=== PATIENT | female | born 1965 | race Caucasian/White ===

== ENCOUNTER 2017-07-04 08:05 | Emergency (ER) | payer OTHER ==
[2017-07-04 08:37] VITALS: BP 120/79
--- NOTE | 2017-07-14 07:26 | UC ---
Skin Complaint HPI - HPI Summary HPI Summary: 51 yo female removed tick from right torso today Unsure how long it was attached used her fingers - History of Current Complaint Chief Complaint: UCSkin Time Seen by Provider: 07/04/17 08:49 Stated Complaint: TICK BITE Hx Obtained From: Patient Onset/Duration: Sudden Onset Timing: Constant Onset Severity: Mild Current Severity: Mild Pain Intensity: 3 Pain Scale Used: 0-10 Numeric Location: Other - right torso Character: Swelling, Redness Aggravating Factor(s): Touch Alleviating Factor(s): Nothing Associated Signs & Symptoms: Positive: Rash Related History: Insect Bite/Sting - Allergy/Home Medications Allergies/Adverse Reactions: Allergies Allergy/AdvReac Type Severity Reaction Status Date / Time No Known Allergies Allergy Verified 07/04/17 08:31 Home Medications: Home Medications Cyanocobalamin [Vitamin B-12] 1 tab PO DAILY 07/04/17 [History Confirmed ] Omeprazole CAP* [Prilosec CAP* 20 MG] 1 cap PO DAILY 07/04/17 [History Confirmed 07/04/17] Vitamin E 1 tab PO DAILY 07/04/17 [History Confirmed 07/04/17] Review of Systems Constitutional: Negative Skin: Rash Eyes: Negative ENT: Negative Respiratory: Negative Cardiovascular: Negative Gastrointestinal: Negative Genitourinary: Negative Motor: Negative Neurovascular: Negative Musculoskeletal: Negative Neurological: Negative Psychological: Negative Is Patient Immunocompromised?: No All Other Systems Reviewed And Are Negative: Yes PMH/Surg Hx/FS Hx/Imm Hx Previously Healthy: Yes - Surgical History Surgical History: Yes Surgery Procedure, Year, and Place: [facility] 1998 - Family History Known Family History: Positive: Hypertension - Social History Alcohol Use: Occasionally Substance Use Type: None Smoking Status (MU): Never Smoked Tobacco Physical Exam Triage Information Reviewed: Yes Appearance: Well-Appearing, No Pain Distress, Well-Nourished Vital Signs: Initial Vital Signs Temp 98.3 F 07/04/17 08:34 Pulse 68 07/04/17 08:34 Resp 16 07/04/17 08:34 BP 120/79 07/04/17 08:34 Pulse Ox 100 07/04/17 08:34 Vital Signs Reviewed: Yes Eyes: Positive: Conjunctiva Clear ENT: Positive: Hearing grossly normal. Negative: Nasal congestion, Nasal drainage, Trismus, Muffled/hoarse voice Neck: Positive: Supple, Nontender, No Lymphadenopathy Respiratory: Positive: Lungs clear, Normal breath sounds, No respiratory distress Cardiovascular: Positive: RRR, No Murmur Musculoskeletal: Positive: ROM Intact, No Edema Neurological: Positive: Alert Psychological Exam: Normal Skin Exam: Other - tick bite with minimal surrounding erthyema Course/Dx - Diagnoses Provider Diagnoses: tick bite. lyme disease prophylaxis Discharge - Discharge Plan Condition: Stable Disposition: HOME Prescriptions: DOXYcycline CAP(*) [DOXYcycline 100MG CAP(*)] 200 mg PO DAILY #2 cap Patient Education Materials: Tick Bite (ED) Referrals: Maricarmen Rehman MD [Primary Care Provider] - If Needed Additional Instructions: CALL FOR ANY QUESTIONS RETURN FOR ANY PROBLEMS
== END 2017-07-04 09:08 | disposition home or self-care (01) ==
LOC: UCEAST 08:05
DX: S30.861A Insect bite (nonvenomous) of abdominal wall, initial encounter (principal); W57.XXXA Bitten or stung by nonvenomous insect and other nonvenomous arthropods, initial encounter; Y93.9 Activity, unspecified; Y92.9 Unspecified place or not applicable
CPT/HCPCS: 99212; G0463

== ENCOUNTER 2022-10-12 12:40 | Observation (INO) ==
[2022-10-12 12:59] LABS: ABS Eosinophils 0.2 10^3/ul (0-0.6); ABS Lymphocytes 2.3 10^3/ul (1.0-4.8); ABS Monocytes 0.4 10^3/ul (0-0.8); ABS Neutrophils 2.8 10^3/ul (1.5-7.7); Eosinophil % 3.5 %; Hematocrit 37 % (35-47); Hemoglobin 11.9 g/dL (12.0-16.0); Lymphocyte % 39.8 %; Mean Corpuscular HGB Conc 33 g/dL (31-36); Mean Corpuscular Hemoglobin 32 pg (27-31); Mean Corpuscular Volume 97 fL (80-97); Mean Platelet Volume 7.7 fL (7.4-10.4); Platelet Count 311 10^3/uL (150-450); Red Blood Count 3.75 10^6 /uL (3.70-4.87); Red Cell Distribution Width 13 % (10-15); White Blood Count 5.8 10^3/uL (3.5-10.8)
[2022-10-12 13:23] LABS: INR 0.96 (0.88-1.18)
[2022-10-12 13:24] LABS: High Sens Troponin Baseline < 3 pg/mL (<15)
[2022-10-12 13:48] LABS: Albumin 4.2 g/dL (3.2-5.2); CO2 Carbon Dioxide 29 mmol/L (22-32); Calcium 9.3 mg/dL (8.6-10.3); Chloride 103 mmol/L (101-111); Sodium 137 mmol/L (135-145)
[2022-10-12 13:54] LABS: ALT 17 U/L (7-52); Albumin/Globulin Ratio 1.5 (1-3); Alkaline Phosphatase 58 U/L (35-149); Blood Urea Nitrogen 22 mg/dL (6-24); Creatinine, Serum 0.89 mg/dL (0.51-0.95); Globulin 2.8 g/dL (2-4); Glucose 153 mg/dL (70-100); eGFR CKD-EPI 74.6 (>60)
[2022-10-12 14:32] LABS: High Sensitivity Troponin 1 Hr < 3 pg/mL (<15)
[2022-10-12 14:41] LABS: AST 19 U/L (13-39); Anion Gap 5 mmol/L (2-11); Potassium 4.1 mmol/L (3.5-5.0)
[2022-10-12 15:14] LABS: Magnesium 2.3 mg/dL (1.9-2.7)
[2022-10-12] MEDS ORDERED: Senna TAB 8.6 mg TAB PO PRN (15:56)
[2022-10-12 20:23] LABS: TSH Ultra Thyroid Stim Horm 0.62 mcIU/mL (0.34-5.60)
[2022-10-13 06:12] LABS: ABS Eosinophils 0.2 10^3/ul (0-0.6); ABS Monocytes 0.4 10^3/ul (0-0.8); ABS Neutrophils 2.4 10^3/ul (1.5-7.7); Eosinophil % 4.6 %; Hematocrit 37 % (35-47); Hemoglobin 12.2 g/dL (12.0-16.0); Lymphocyte % 39.4 %; Mean Corpuscular HGB Conc 33 g/dL (31-36); Mean Corpuscular Hemoglobin 32 pg (27-31); Mean Corpuscular Volume 97 fL (80-97); Mean Platelet Volume 7.5 fL (7.4-10.4); Platelet Count 323 10^3/uL (150-450); Red Blood Count 3.85 10^6 /uL (3.70-4.87); Red Cell Distribution Width 14 % (10-15); White Blood Count 5.2 10^3/uL (3.5-10.8)
[2022-10-13 07:06] LABS: Calcium 9.4 mg/dL (8.6-10.3); Creatinine, Serum 0.73 mg/dL (0.51-0.95); Potassium 4.6 mmol/L (3.5-5.0); eGFR CKD-EPI 94.7 (>60)
[2022-10-13 07:44] LABS: Magnesium 2.3 mg/dL (1.9-2.7)
[2022-10-13 12:55] VITALS: BP 121/66
== END 2022-10-13 15:25 | disposition home or self-care (01) ==
LOC: ED 12:40 → EDHOLD 12:40 → MEDTELE 20:20
PROVIDERS: ADMIT Internal Medicine; ATTEND Internal Medicine